=== PATIENT | female | born 1985 | race African-American/Black ===

== ENCOUNTER 2018-02-02 17:06 | Emergency (ER) | payer SELFPAY ==
[2018-02-02 17:31] LABS: URINE HCG POC HCG NEGATIVE (Negative)
[2018-02-02 17:36] LABS: BILIRUBIN,URINE SMALL (NEG); CLARITY,URINE CLEAR; COLOR,URINE AMBER; GLUCOSE,URINE NEGATIVE (NEG); NITRITE,URINE NEGATIVE (NEG); PROTEIN,URINE 30 mg/dL (NEG-TRACE); UROBILINOGEN,URINE 0.2 mg/dL (0.2 mg/dL)
[2018-02-02 17:44] LABS: BACTERIA,URINE FEW /HPF (0-FEW); SQUAMOUS EPITHELIAL CELL,UR MOD /LPF
[2018-02-02] MEDS: AZITHROMYCIN 250 MG TABLET. PO (18:33)
[2018-02-02] MEDS: metroNIDAZOLE 500 MG TABLET PO (18:33)
[2018-02-02] MEDS: cefTRIAXone IM 250 MG VIAL IM (18:34)
== END 2018-02-02 18:37 | disposition home or self-care (01) ==
LOC: ER 17:06
DX: N39.0 Urinary tract infection, site not specified (principal); Z88.6 Allergy status to analgesic agent
CPT/HCPCS: 81001; 81025; 87491; 87591; 96372; 99284; J0696; Q0144